=== PATIENT | male | born 1990 | race African-American/Black ===

== ENCOUNTER 2019-12-27 00:38 | Emergency (ER) | payer MEDICARE ==
[~2019-12-27] VITALS: Ht 180.3 cm; Wt 109.9 kg
[2019-12-27 01:07] LABS: HEMATOCRIT 43.4 % (39.0-50.0); HEMOGLOBIN 13.8 g/dl (14.0-18.0); IMMATURE GRANULOCYTES 0.4 % (0.0-5.0); MEAN CELL VOLUME 82.2 fL CALC (80.0-100.0); MEAN CORPUSCULAR HGB 26.1 pG CALC (26.0-32.0); MEAN CORPUSCULAR HGB CONC 31.8 g/dL CAL (32.0-36.0); RED BLOOD COUNT 5.28 mill/uL (4.70-6.10); RED CELL DISTRI WIDTH 14.3 % (11.5-15.5)
[2019-12-27 01:33] LABS: ALBUMIN 4.9 g/dL (3.2-5.0); ALKALINE PHOSPHATASE 83 u/l (38-126); ANION GAP 17 (6-22 (CALC)); BILIRUBIN, TOTAL 0.5 mg/dL (0.0-1.4); BUN 14 mg/dL (9-20); BUN/CREATININE RATIO 12 (12-20 (CALC)); CARBON DIOXIDE 22 mmol/l (22-30); CHLORIDE 111 mmol/l (95-108); CREATININE 1.2 mg/dL (0.7-1.3); GFR > 60 ML/MIN (>=60 (CALC)); GFR FOR AFR.AMER. > 60 ML/MIN (>=60 (CALC)); SGOT/AST 27 u/l (17-59); SODIUM 146 mmol/l (137-146); TOTAL PROTEIN 8.8 g/dL (6.3-8.2)
[2019-12-27 01:45] LABS: MYOGLOBIN 204 ng/mL (0 - 121)
[2019-12-27 02:50] LABS: URINE BILIRUBIN - DIPSTICK NEGATIVE (NEGATIVE); URINE BLOOD DIPSTICK NEGATIVE (NEGATIVE); URINE COLOR YELLOW; URINE GLUCOSE - DIPSTICK NEGATIVE (NEGATIVE); URINE KETONE NEGATIVE (NEGATIVE); URINE LEUK ESTERASE NEGATIVE (NEGATIVE); URINE NITRITE - DIPSTICK NEGATIVE (Negative); URINE PH 5.5 (4.5-8.0); URINE PROTEIN - DIPSTICK NEGATIVE (NEG-TRACE); URINE SPECIFIC GRAVITY >=1.030; URINE UROBILINOGEN - DIPSTICK 0.2 E.U./dL (0.2)
[2019-12-27 05:00] VITALS: BP 144/78
== END 2019-12-27 05:07 | disposition short-term general hospital (02) ==
LOC: ED 00:38
PROVIDERS: Emergency Medicine
DX: G93.6 Cerebral edema (principal); Z20.828 Contact with and (suspected) exposure to other viral communicable diseases
CPT/HCPCS: S0166

== ENCOUNTER 2020-01-05 23:57 | Observation (INO) | payer MEDICARE ==
[~2020-01-05] VITALS: Ht 188 cm; Wt 127.0 kg
--- NOTE | 2020-01-05 23:58 | NUR ---
VIA EMS TO ROOM BRETT IN ATTENDANCE IN HANDCUFFS
[2020-01-06 00:36] LABS: HEMATOCRIT 44.5 % (39.0-50.0); IMMATURE GRANULOCYTES 0.5 % (0.0-5.0); MEAN CELL VOLUME 82.4 fL CALC (80.0-100.0); MEAN CORPUSCULAR HGB 25.9 pG CALC (26.0-32.0); MEAN CORPUSCULAR HGB CONC 31.5 g/dL CAL (32.0-36.0); NEUT# 8.59 thou/uL (1.82-7.42); RED BLOOD COUNT 5.4 mill/uL (4.70-6.10)
[2020-01-06 00:54] LABS: ALBUMIN 4.9 g/dL (3.2-5.0); ALKALINE PHOSPHATASE 118 u/l (38-126); ANION GAP 14 (6-22 (CALC)); BILIRUBIN, TOTAL 0.5 mg/dL (0.0-1.4); BUN 14 mg/dL (9-20); BUN/CREATININE RATIO 9 (12-20 (CALC)); CARBON DIOXIDE 28 mmol/l (22-30); CHLORIDE 106 mmol/l (95-108); CREATININE 1.5 mg/dL (0.7-1.3); ETHYL ALCOHOL 0 mg/dl (0-30); GFR 52 ML/MIN (>=60 (CALC)); GFR FOR AFR.AMER. > 60 ML/MIN (>=60 (CALC)); POTASSIUM 4.6 mmol/l (3.5-5.1); SGOT/AST 39 u/l (17-59); SODIUM 143 mmol/l (137-146)
[2020-01-06 00:59] LABS: INTERNATIONAL NORMALIZED RATIO 1.3 RATIO (0.7-1.3); PROTHROMBIN TIME 13.1 SECONDS (9.0-12.5)
[2020-01-06 01:14] LABS: MYOGLOBIN 556 ng/mL (0 - 121)
--- NOTE | 2020-01-06 02:00 | NUR ---
VOIDED PER URINAL SPECIMEN SENT.
[2020-01-06 02:13] LABS: URINE BILIRUBIN - DIPSTICK NEGATIVE (NEGATIVE); URINE BLOOD DIPSTICK NEGATIVE (NEGATIVE); URINE COLOR YELLOW; URINE GLUCOSE - DIPSTICK NEGATIVE (NEGATIVE); URINE KETONE NEGATIVE (NEGATIVE); URINE LEUK ESTERASE NEGATIVE (NEGATIVE); URINE NITRITE - DIPSTICK NEGATIVE (Negative); URINE PROTEIN - DIPSTICK NEGATIVE (NEG-TRACE); URINE SPECIFIC GRAVITY 1.025; URINE UROBILINOGEN - DIPSTICK 0.2 E.U./dL (0.2)
--- NOTE | 2020-01-06 02:50 | NUR ---
FREQUENTLY TRIES TO MASTURBATE
--- NOTE | 2020-01-06 03:00 | NUR ---
TELEPHONE REPORT RECEIVED FROM Bulmaro LONDONO RN IN ED, ROOM ICU#4 PREPARED TO RECEIVE PT.
--- NOTE | 2020-01-06 03:10 | NUR ---
PT ARRIVES TO UNIT ON STRETCHER ACCOMPANIED BY Bulmaro ALVA RN AND Alondra PATTEN LPN. PT AMBULATORY TO BED AFTER REFUSING TO GET UP WHEN ASKED SEVERAL TIMES. LAYS DOWN ON BED WITH HEAD AT FOOT OF BED. REFUSES TO LAY IN BED WITH HEAD AT HEAD OF BED SO MONITOR CAN BE CONNECTED AFTER BEING ASKED SEVERAL TIMES, PT COMPLIES.
--- NOTE | 2020-01-06 03:10 | NUR ---
Admission Note Report Given to: HANNAH MONTEZ Transported by: Wheelchair X Stretcher Transported with: X Nurse Transporter X Patent IV O2 X Vamp Marker Location: X ICU MS2
[2020-01-06 03:30] VITALS: BP 141/80
--- NOTE | 2020-01-06 04:07 | NUR ---
PT LAYING IN BED, FIDGETING WITH CALL MCCAULEY/REMOTE, PULSE OX, CABLE, IV LINE. ASKING FOR BREAKFAST. PT ADVISED HE IS NPO AT THIS TIME AND WILL BE RE-EVALUATED BY PROVIDER WHEN MORE ALERT AND APPROPRIATE. PT SHOWS NO SIGN OF UNDERSTANDING RATIONALE, CON'T TO ASK FOR FOOD. SITTER AT DOOR.
[2020-01-06 06:20] VITALS: BP 136/91
--- NOTE | 2020-01-06 07:42 | NUR ---
PT RECEIVED FROM WAX BLENDER, BRETT Yi 2 AT BEDSIDE, UNCOOPERATIVE INITIALLY IN RESTING IN THE BED. RESTRAINTS TIED AFTER PT RESTED IN THE BED, EVENTUALLY LAW ENFORCEMENT LEAVES BEDSIDE. PT NOT ABLE TO FOCUS OR EXPRESS HIMSELF COHERENTLY, PRESUMABLY FROM DRUG USE. PT DOES NOT APPEAR TO BE AGGRESSIVE AT THIS POINT, NOT DANGER TO SELF OR STAFF. SITTER OUTSIDE ROOM.
[2020-01-06 07:51] VITALS: BP 144/80
--- NOTE | 2020-01-06 09:57 | NUR ---
PT REMAINS IN RESTRAINTS PER CONFUSION. PT CONTINUES TO MASTURBATE IN SPITE OF VERBAL CUES AND COVERING HIM SINCE HE KICKS OFF SHEETS. SITTER REMAINS WITHIN EYESIGHT OF PT. NO DISTRESS, NO COMPLAINTS NOTED.
--- NOTE | 2020-01-06 13:32 | NUR ---
PT HAS BEEN ALLOWED TO BE OOB AND WALK AROUND ROOM LONG HE DOES NOT OPEN DOOR. PT MOSTLY COMPLIANT, SEEN RESTLESS, WANTS TO TRANSFER TO PSYCH FACILITY NOW. MEAL TRAY PROVIDED.
--- NOTE | 2020-01-06 14:55 | NUR ---
PT HAS BEEN DISCHARGED TO [facility]. [place] [employer] HAVE PICKED UP PT, HANDCUFFED HIM FOR TRANSPORT, LED HIM TO VEHICLE. PT WAS MEDICALLY CLEARED THIS MORNING BY DR GUTIERREZ. PT LEAVES [facility] IN STABLE CONDITION. PRIOR TO DEPARTURE PT HAD CONTINUED WITH INAPPROPRIATE BEHAVIOR, SEXUAL IN NATURE.
== END 2020-01-06 14:55 ==
LOC: ED 23:57 → EDBD 01-06 00:20 → ED-I 01-06 00:20 → ED 01-06 02:58 → ICU 01-06 02:59
PROVIDERS: Emergency Medicine; ADMIT Internal Medicine; ATTEND Internal Medicine
DX: R41.82 Altered mental status, unspecified (principal); R45.851 Suicidal ideations; R45.850 Homicidal ideations; Z78.1 Physical restraint status; Z86.79 Personal history of other diseases of the circulatory system; Z20.828 Contact with and (suspected) exposure to other viral communicable diseases
CPT/HCPCS: J2060